=== PATIENT | female | born 1940 | race Caucasian/White ===

== ENCOUNTER 2018-05-01 20:53 | Emergency (ER) | payer OTHER, MEDICAID ==
[~2018-05-01] VITALS: Ht 167.6 cm; Wt 45.4 kg
[~2018-05-01 20:53] MED LIST: ASPI-484 PO; ATOR20TA PO; CLOP75TA52 PO; LEVO75TA6 PO; LISI-414 PO; LORA1TAB PO; METO25TA2 PO
[2018-05-01 21:33] LABS: APPEARANCE,URINE SLIGHTLY HAZY (CLEAR); BILIRUBIN,URINE NEGATIVE (NEGATIVE); UA COLOR YELLOW (YELLOW); UROBILINOGEN,URINE NORMAL (NEGATIVE)
--- NOTE | 2018-05-01 21:34 | ER.PDOC ---
General Chief Complaint: Female Urogenital Problems Stated Complaint: FEMALE Time seen by MD: 21:20 Source: patient, family Exam Limitations: no limitations History of Present Illness Initial Comments Pt states that for a while she has been urinating a lot, having some tooth pain on right lower mandibular area. She has also lost weight Severity/Quality: moderate Allergies: Coded Allergies: Penicillins (Verified Allergy, Unknown, Hives, 03/02/16) Home Meds Active Scripts Metoprolol Succinate (TOPROL XL) 25 Mg Tab.er.24h, 1 TAB PO DAILY, #30 TAB 3 Refills Prov:ANTONY SANTOS MD 06/14/16 Lisinopril (LISINOPRIL) 5 Mg Tablet, 1 TAB PO DAILY for BLOOD PRESSURE, #30 TAB 3 Refills Prov:ANTONY SANTOS MD 06/14/16 Atorvastatin 20MG (LIPITOR 20MG) 20 Mg Tablet, 20 MG PO DAILY, #30 TAB 3 Refills Prov:ANTONY SANTOS MD 06/14/16 Clopidogrel Bisulfate (PLAVIX) 75 Mg Tablet, 75 MG PO DAILY, #30 TABLET 3 Refills Prov:ANTONY SANTOS MD 06/14/16 Aspirin (ASPIR 81) 81 Mg Tablet.dr, 162 MG PO DAILY, #30 3 Refills Prov:ANTONY SANTOS MD 06/14/16 Reported Medications Lorazepam (LORAZEPAM) 1 Mg Tablet, 1 MG PO PRN PRN for ANXIETY, TABLET 08/25/17 Levothyroxine Sodium (LEVOTHYROXINE SODIUM) 75 Mcg Tablet, 70 MCG PO DAILY, TABLET 06/13/16 Past Medical History Medical History: cardiac problems, heart attack, thyroid disease Surgical History: cardiac cath, hysterectomy, stent LMP (females 10-50): hysterectomy Social History Smoking: cigarettes, greater than 1 pack/day Alcohol Use: none Drug Use: none Review of Systems Constitutional: no symptoms reported EENTM: no symptoms reported, mouth pain, mouth swelling Respiratory: shortness of breath Cardiovascular: no symptoms reported Gastrointestinal: no symptoms reported Genitourinary: see HPI Musculoskeletal: no symptoms reported Skin: no symptoms reported, other (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) Psychiatric/Neurological: no symptoms reported Endocrine: no symptoms reported Hematologic/Lymphatic: no symptoms reported Physical Exam General Appearance: No Apparent Distress, WD/WN EENT: eyes nml inspection, nml ENT inspection, pharynx nml Neck: nml inspection, non-tender Cardiovascular/Respiratory: Regular Rate, Rhythm, No M/R/G, Normal Peripheral Pulses, No JVD, Normal Breath Sounds, No Respiratory Distress Abdomen: Normal Bowel Sounds, Non Tender, Soft, No Organomegaly, No Pulsatile Mass Extremities: Normal Range of Motion, Non-Tender, Normal Inspection, No Pedal Edema, No Calf Tenderness, Normal Capillary Refill Neurologic/Psychiatric: financial planning advisor II-XII NML as Tested, No Motor/Sensory Deficits, Alert, Normal Mood/Affect, Oriented x 3 Skin: Normal Color, Warm/Dry, Other (SCCA nose) Lymphatic: No Adenopathy Results/Orders Results/Orders Laboratory Tests Test 05/01/18 21:26 05/01/18 21:32 Urine Collection Type CCMS Urine Color YELLOW (YELLOW) Urine Appearance SLIGHTLY HAZY (CLEAR) Urine Bilirubin NEGATIVE MG/DL (NEGATIVE) Urine Ketones 50 mg/dL (NEGATIVE) Urine Specific [place] 1.020 (1.005-1.035) Urine pH 6 (5.0-6.0) Urine Protein NEGATIVE (NEGATIVE) Urine Urobilinogen NORMAL (NEGATIVE) Urine Nitrate NEGATIVE (NEGATIVE) Urine Leukocyte Esterase 500/uL 2+ (NEGATIVE) Urine Blood NEGATIVE (NEGATIVE) Urine RBC NONE SEEN RBC/HPF (NONE Urine WBC 10-25 WBC/HPF (0-2) Urine Squamous Epithelial Cells NONE SEEN #/HPF (FEW) Urine Bacteria RARE (NONE SEEN) Urine Other MUCUS TRACE #/HPF Urine Glucose NORMAL (NEGATIVE) White Blood Count 10.4 10^3/uL (4.5-11.0) Red Blood Count 4.22 10^6/uL (4.00-5.20) Hemoglobin 13.1 g/dL (12.0-15.0) Hematocrit 38.9 % (36.0-46.0) Mean Corpuscular Volume 92.2 fL (78-100) Mean Corpuscular Hemoglobin 31.0 pg (26-34) Mean Corpuscular Hemoglobin Concent 33.7 g/dL (33-37) Red Cell Distribution Width 13.6 % (11.5-14.5) Platelet Count 300 10^3/uL (150-400) Mean Platelet Volume 9.3 fL (7.8-11.0) Neutrophils (%) (Auto) 46.2 % (41.0-85.0) Lymphocytes (%) (Auto) 37.1 % (24.0-44.0) Monocytes (%) (Auto) 12.3 % (5.0-12.0) Neutrophils # (Auto) 4.8 10^3/uL (1.8-7.7) Lymphocytes # (Auto) 3.9 10^3/uL (1.0-4.8) Monocytes # (Auto) 1.3 10^3/uL (0.3-0.8) Absolute Immature Granulocyte (auto 0.02 10^3 u/L (0-2) Eosinophils % 3.4 % (0.0-5.0) Basophils % 0.8 % (0.0-0.2) Basophils # 0.1 10^3/uL (0.0-0.1) Eosinophil Count 0.4 10^3/uL (0.0-0.2) Sodium Level 128 mmol/L (132-145) Potassium Level 4.0 mmol/L (3.6-5.2) Chloride Level 96.0 mmol/L (96-109) Carbon Dioxide Level 27.4 mmol/L (20.0-32) Anion Gap 8.6 Blood Urea Nitrogen 12 mg/dL (7-18) Creatinine 0.95 mg/dL (0.59-1.40) Estimated GFR () 69.4 (>/=60) BUN/Creatinine Ratio 12.0 Glucose Level 113 mg/dL (70-110) Calcium Level 9.0 mg/dL (8.4-10.5) Total Bilirubin 0.6 mg/dL (0.2-1.0) Aspartate Amino Transf (AST/SGOT) 46 U/L (0-35) Alanine Aminotransferase (ALT/SGPT) 38 U/L (12-78) Alkaline Phosphatase 108 U/L (50-136) Total Protein 7.3 g/dL (6.4-8.2) Albumin 3.8 g/dL (3.4-5.0) Globulin 3.5 Percent Immature Gran (Cell Imm) 0.20 % (0.00-0.50) Departure Time of Disposition: 22:03 Disposition: 01 HOME, SELF-CARE Impression: Primary Impression: UTI (urinary tract infection) Additional Impression: Dental abscess Condition: Stable Patient Instructions: Dental Abscess, Dental Caries, Urinary Tract Infection Referrals: RAINE SINGLETON [facility]IC[facility] (PCP) PRIMARY CARE PROVIDER Duration or Time Spent with Pa: 20 Problem Qualifiers SCOTTY RAMOS MD May 01, 2018 21:34
[2018-05-01 21:38] LABS: BASOPHIL # 0.1 10^3/uL (0.0-0.1); BASOPHIL % 0.8 % (0.0-0.2); EOSINOPHIL # 0.4 10^3/uL (0.0-0.2); EOSINOPHIL % 3.4 % (0.0-5.0); HEMOGLOBIN 13.1 g/dL (12.0-15.0); LYMPHOCYTES # 3.9 10^3/uL (1.0-4.8); LYMPHOCYTES % 37.1 % (24.0-44.0); MEAN CELL HGB CONCENTRATION 33.7 g/dL (33-37); MEAN CORP VOLUME 92.2 fL (78-100); MEAN PLATELET VOLUME 9.3 fL (7.8-11.0); MONOCYTES # 1.3 10^3/uL (0.3-0.8); MONOCYTES % 12.3 % (5.0-12.0); NEUTROPHIL # 4.8 10^3/uL (1.8-7.7); NEUTROPHILS % 46.2 % (41.0-85.0); RED CELL DISTRIBUTION WIDTH 13.6 % (11.5-14.5); WHITE BLOOD CELL 10.4 10^3/uL (4.5-11.0)
[2018-05-01 21:55] LABS: CARBON DIOXIDE 27.4 mmol/L (20.0-32)
[2018-05-01] MEDS ORDERED: AUGMENTIN 500-125 TABLET PO ONE (22:03)
[2018-05-01] MEDS ORDERED: AUGMENTIN 500-125 TABLET PO STA (22:04)
[2018-05-01 22:10] VITALS: BP 128/84
== END 2018-05-01 22:10 | disposition home or self-care (01) ==
LOC: ER 20:53
DX: N39.0 Urinary tract infection, site not specified (principal); K04.7 Periapical abscess without sinus; E07.9 Disorder of thyroid, unspecified; I25.2 Old myocardial infarction; Z79.82 Long term (current) use of aspirin; Z88.0 Allergy status to penicillin; Z90.710 Acquired absence of both cervix and uterus; Z79.899 Other long term (current) drug therapy
CPT/HCPCS: 36415; 80053; 81000; 85025; 87086; 99284

== ENCOUNTER → 2018-06-01 | Outpatient (CLI) | payer OTHER, MEDICAID ==
[2018-06-01 12:22] LABS: BASOPHIL # 0.1 10^3/uL (0.0-0.1); BASOPHIL % 0.7 % (0.0-0.2); EOSINOPHIL # 0.1 10^3/uL (0.0-0.2); EOSINOPHIL % 1.3 % (0.0-5.0); HEMOGLOBIN 15.1 g/dL (12.0-15.0); LYMPHOCYTES # 2.5 10^3/uL (1.0-4.8); LYMPHOCYTES % 32.9 % (24.0-44.0); MEAN CELL HGB 31.4 pg (26-34); MEAN CELL HGB CONCENTRATION 34.4 g/dL (33-37); MEAN CORP VOLUME 91.3 fL (78-100); MEAN PLATELET VOLUME 8.9 fL (7.8-11.0); MONOCYTES # 0.8 10^3/uL (0.3-0.8); MONOCYTES % 10.3 % (5.0-12.0); NEUTROPHIL # 4.1 10^3/uL (1.8-7.7); NEUTROPHILS % 54.7 % (41.0-85.0); RED CELL DISTRIBUTION WIDTH 13.9 % (11.5-14.5); WHITE BLOOD CELL 7.6 10^3/uL (4.5-11.0)
--- NOTE | 2018-06-01 12:36 | DIREP ---
PROCEDURE:CHEST 2 VIEWS COMPARISON:[facility], CR, XRAY CHEST 2 VWS, 08/25/2017, 02:17 PM. INDICATIONS:J44.9 COPD FINDINGS: LUNGS/PLEURA:No significant pulmonary parenchymal abnormalities. No effusions. VASCULATURE:Normal. Unremarkable pulmonary vasculature. CARDIAC:Normal. No cardiac silhouette abnormality or cardiomegaly. MEDIASTINUM:Normal. No visible mass or adenopathy. BONES:No acute pathology. Mild levoscoliosis of the lower thoracic spine. OTHER:Negative. CONCLUSION:No acute cardiac or pulmonary disease, no change from the prior exam. Dictated by: Dago Segura M.D. on 06/01/2018 at 12:33 PM
[2018-06-01 12:49] LABS: CARBON DIOXIDE 28.1 mmol/L (20.0-32)
[2018-06-01 12:50] LABS: CALCIUM 9.3 mg/dL (8.4-10.5)
== END | disposition home or self-care (01) ==
LOC: RAD 11:48
PROVIDERS: ATTEND Nurse Practitioner Family
DX: J44.9 Chronic obstructive pulmonary disease, unspecified (principal); M41.84 Other forms of scoliosis, thoracic region; E03.9 Hypothyroidism, unspecified; I25.10 Atherosclerotic heart disease of native coronary artery without angina pectoris; Z88.0 Allergy status to penicillin; Z87.891 Personal history of nicotine dependence; Z90.49 Acquired absence of other specified parts of digestive tract; Z90.710 Acquired absence of both cervix and uterus
CPT/HCPCS: 36415; 71046; 80053; 84439; 84443; 85025

== ENCOUNTER → 2018-07-17 | Outpatient (CLI) | payer OTHER, MEDICAID ==
--- NOTE | 2018-07-17 09:31 | DIREP ---
PROCEDURE:CHEST 2 VIEWS COMPARISON:[facility], CR, XRAY CHEST 2 VWS, 06/01/2018, 11:51 AM. INDICATIONS:R05 COUGH FINDINGS: LUNGS/PLEURA:There is hyperinflation of the lung fernandez consistent with COPD. No infiltrate or pleural effusion is seen. VASCULATURE:Normal. Unremarkable pulmonary vasculature. CARDIAC:Normal. No cardiac silhouette abnormality or cardiomegaly. MEDIASTINUM:Normal. No visible mass or adenopathy. BONES:Normal. No fracture or visible bony lesion. OTHER:Negative. CONCLUSION:There are findings consistent with chronic obstructive pulmonary disease without acute changes. Dictated by: Dominic Spears M.D. on 07/17/2018 at 09:25 AM
== END | disposition home or self-care (01) ==
LOC: RAD 08:48
PROVIDERS: ATTEND Nurse Practitioner Family
DX: R05 Cough (principal)
CPT/HCPCS: 71046

== ENCOUNTER 2018-07-22 15:35 | Emergency (ER) | payer MEDICAID, OTHER ==
[~2018-07-22] VITALS: Ht 167.6 cm; Wt 47.2 kg
[2018-07-22 15:53] VITALS: BP 161/71
--- NOTE | 2018-07-22 16:01 | NUR ---
ARRIVAL PATIENT ARRIVED TO ED5 AMBULATORY WITH FAMILY, FAMILY BROUGHT PATIENT TO THE ED FOR BLACK FEET AND WEAKNESS TODAY, PATIENT CALLED FAMILY ASKING THEM TO COME OVER, ON THEIR ARRIVAL SHE WAS WEAK AND HER FEET WERE BLACK. BROUGHT THE PATIENT TO THE ED FOR FURTHER EVAL.
[2018-07-22] MEDS ORDERED: DUONEB 0.5 MG-3 MG/3 ML SOLN IH STA (16:02)
[2018-07-22] MEDS ORDERED: DUONEB 0.5 MG-3 MG/3 ML SOLN IH ONE (16:07)
--- NOTE | 2018-07-22 16:12 | PCM.EKG ---
[facility] Test Date: 2018-07-22 Test Time: 16:17:45 Pat Name: NADEGE ALFARO Department: Room: Gender: F Sports Medicine Physician: PATTY : [id number] Requested By: JALIL HOLT Order Number: [id number] Reading MD: Godwin Carranza Measurements Intervals [place] Rate: 60 P: 81 FL: 120 QRS: 84 QRSD: 84 T: 81 QT: 440 QTc: 440 Interpretive Statements Normal sinus rhythm Normal ECG Compared to ECG 08/25/2017 18:26:40 No significant changes Electronically Signed On 07-22-2018 19:42:04 CDT by Godwin Carranza Please click the below link to view image of tracing.
[2018-07-22 16:13] LABS: BASOPHIL # 0.1 10^3/uL (0.0-0.1); BASOPHIL % 0.6 % (0.0-0.2); EOSINOPHIL # 0.3 10^3/uL (0.0-0.2); EOSINOPHIL % 2.7 % (0.0-5.0); HEMOGLOBIN 15.2 g/dL (12.0-15.0); LYMPHOCYTES # 2.9 10^3/uL (1.0-4.8); LYMPHOCYTES % 30.5 % (24.0-44.0); MEAN CELL HGB 31.5 pg (26-34); MEAN CELL HGB CONCENTRATION 34.5 g/dL (33-37); MEAN CORP VOLUME 91.3 fL (78-100); MEAN PLATELET VOLUME 9.5 fL (7.8-11.0); MONOCYTES % 10.6 % (5.0-12.0); NEUTROPHIL # 5.2 10^3/uL (1.8-7.7); NEUTROPHILS % 55.4 % (41.0-85.0); WHITE BLOOD CELL 9.3 10^3/uL (4.5-11.0)
[2018-07-22 16:14] LABS: BILIRUBIN,URINE NEGATIVE (NEGATIVE); UROBILINOGEN,URINE NORMAL (NEGATIVE)
[2018-07-22 16:28] LABS: APPEARANCE,URINE SLIGHTLY HAZY (CLEAR); UA COLOR YELLOW (YELLOW)
--- NOTE | 2018-07-22 16:32 | DIREP ---
PROCEDURE:CHEST 2 VIEWS COMPARISON:[facility], CR, XRAY CHEST 2 VWS, 07/17/2018, 08:46 AM. INDICATIONS:cough FINDINGS: LUNGS/PLEURA:There is pulmonary hyperinflation consistent with underlying COPD. No focal consolidation. No effusions. VASCULATURE:Normal. Unremarkable pulmonary vasculature. CARDIAC:Normal. No cardiac silhouette abnormality or cardiomegaly. MEDIASTINUM:Atherosclerotic aorta with no visible aneurysm. BONES:Mild scoliosis with mild degenerative disc disease and spondylosis. OTHER:Negative. CONCLUSION:COPD. No acute cardiopulmonary disease. No change. Dictated by: Gustavo Rushing M.D. on 07/22/2018 at 04:29 PM
[2018-07-22 16:40] LABS: ALANINE AMINOTRANSFERASE(ML) 28 U/L (12-78); ALKALINE PHOSPHATASE 103 U/L (50-136); ASPARTATE AMINO TRANSFERASE 21 U/L (0-35); CALCIUM 9.2 mg/dL (8.4-10.5); CARBON DIOXIDE 27.9 mmol/L (20.0-32); GLUCOSE 112 mg/dL (70-110)
--- NOTE | 2018-07-22 17:06 | ER.PDOC ---
General Chief Complaint: General Complaint Stated Complaint: DIFFICULTIY MOVEMENT, TRAVEL OUT OF US: No Time seen by MD: 16:00 Source: patient Exam Limitations: no limitations History of Present Illness Timing/Duration: 1 week Severity: mild Modifying Factors: improves with rest Associated Symptoms: cough, loss of appetite, malaise, weakness Allergies: Coded Allergies: Penicillins (Verified Allergy, Unknown, Hives, 03/02/16) Home Meds Active Scripts Aspirin (ASPIR 81) 81 Mg Tablet.dr, 162 MG PO DAILY, #30 3 Refills Prov:ANTONY SANTOS MD 06/14/16 Reported Medications Lorazepam (LORAZEPAM) 1 Mg Tablet, 1 MG PO PRN PRN for ANXIETY, TABLET 08/25/17 Levothyroxine Sodium (LEVOTHYROXINE SODIUM) 75 Mcg Tablet, 70 MCG PO DAILY, TABLET 06/13/16 Discontinued Scripts Metoprolol Succinate (TOPROL XL) 25 Mg Tab.er.24h, 1 TAB PO DAILY, #30 TAB 3 Refills Prov:ANTONY SANTOS MD 06/14/16 Lisinopril (LISINOPRIL) 5 Mg Tablet, 1 TAB PO DAILY for BLOOD PRESSURE, #30 TAB 3 Refills Prov:ANTONY SANTOS MD 06/14/16 Atorvastatin 20MG (LIPITOR 20MG) 20 Mg Tablet, 20 MG PO DAILY, #30 TAB 3 Refills Prov:ANTONY SANTOS MD 06/14/16 Clopidogrel Bisulfate (PLAVIX) 75 Mg Tablet, 75 MG PO DAILY, #30 TABLET 3 Refills Prov:ANTONY SANTOS MD 06/14/16 Past Medical History Medical History: COPD, thyroid disease, other Surgical History: hysterectomy, other LMP (females 10-50): postmenopause Family History Significant Family History: no pertinent family hx Social History Smoking: cigarettes Alcohol Use: none Drug Use: none Reviewed Nursing Reviewed: Vital Signs, Abn. Noted Review of Systems All Other Systems: Reviewed and Negative Physical Exam General Appearance: Cachetic, Thin EENT: eyes nml inspection Neck: Non-Tender Respiratory: rhonchi CVS: reg rate & rhythm Gastrointestinal: Normal Bowel Sounds Back: Normal Inspection Extremities: Normal Range of Motion Neurologic/Psychiatric: marble setter helper II-XII NML as Tested Skin: Normal Color Results/Orders Results/Orders Laboratory Tests Test 07/22/18 16:09 White Blood Count 9.3 10^3/uL (4.5-11.0) Red Blood Count 4.83 10^6/uL (4.00-5.20) Hemoglobin 15.2 g/dL (12.0-15.0) Hematocrit 44.1 % (36.0-46.0) Mean Corpuscular Volume 91.3 fL (78-100) Mean Corpuscular Hemoglobin 31.5 pg (26-34) Mean Corpuscular Hemoglobin Concent 34.5 g/dL (33-37) Red Cell Distribution Width 13.0 % (11.5-14.5) Platelet Count 264 10^3/uL (150-400) Mean Platelet Volume 9.5 fL (7.8-11.0) Neutrophils (%) (Auto) 55.4 % (41.0-85.0) Lymphocytes (%) (Auto) 30.5 % (24.0-44.0) Monocytes (%) (Auto) 10.6 % (5.0-12.0) Neutrophils # (Auto) 5.2 10^3/uL (1.8-7.7) Lymphocytes # (Auto) 2.9 10^3/uL (1.0-4.8) Monocytes # (Auto) 1.0 10^3/uL (0.3-0.8) Absolute Immature Granulocyte (auto 0.02 10^3 u/L (0-2) Eosinophils % 2.7 % (0.0-5.0) Basophils % 0.6 % (0.0-0.2) Basophils # 0.1 10^3/uL (0.0-0.1) Eosinophil Count 0.3 10^3/uL (0.0-0.2) Prothrombin Time 9.9 SEC (9.8-11.9) Prothrombin Time INR (Non-Therap) 1.0 Activated Partial Thromboplast Time 24.9 SEC (24.67-30.72) D-Dimer 0.64 mg/L (0.19-0.49) Urine Collection Type VOID Urine Color YELLOW (YELLOW) Urine Appearance SLIGHTLY HAZY (CLEAR) Urine Bilirubin NEGATIVE MG/DL (NEGATIVE) Urine Ketones NEGATIVE (NEGATIVE) Urine Specific [place] 1.020 (1.005-1.035) Urine pH 5 (5.0-6.0) Urine Protein NEGATIVE (NEGATIVE) Urine Urobilinogen NORMAL (NEGATIVE) Urine Nitrate NEGATIVE (NEGATIVE) Urine Leukocyte Esterase 100/ul 1+ (NEGATIVE) Urine Blood NEGATIVE (NEGATIVE) Urine RBC 0-2 RBC/HPF (NONE SEEN) Urine WBC 5-10 WBC/HPF (0-2) Urine Squamous Epithelial Cells FEW #/HPF (FEW) Urine Bacteria RARE (NONE SEEN) Urine Other 2+ MUCUS #/HPF Urine Glucose NORMAL (NEGATIVE) Sodium Level 138 mmol/L (132-145) Potassium Level 4.5 mmol/L (3.6-5.2) Chloride Level 102.0 mmol/L (96-109) Carbon Dioxide Level 27.9 mmol/L (20.0-32) Anion Gap 12.6 Blood Urea Nitrogen 9 mg/dL (7-18) Creatinine 0.81 mg/dL (0.59-1.40) Estimated GFR () 83.4 (>/=60) BUN/Creatinine Ratio 11.0 Glucose Level 112 mg/dL (70-110) Calcium Level 9.2 mg/dL (8.4-10.5) Total Bilirubin 0.4 mg/dL (0.2-1.0) Aspartate Amino Transf (AST/SGOT) 21 U/L (0-35) Alanine Aminotransferase (ALT/SGPT) 28 U/L (12-78) Alkaline Phosphatase 103 U/L (50-136) Total Creatine Kinase 39 U/L (26-192) Creatine Kinase MB 0.5 ng/mL (0.5-3.6) Troponin I < 0.02 ng/mL (0.00-0.05) Pro-B-Type Natriuretic Peptide 280 pg/mL (0-450) Total Protein 7.3 g/dL (6.4-8.2) Albumin 3.3 g/dL (3.4-5.0) Globulin 4.0 Percent Immature Gran (Cell Imm) 0.20 % (0.00-0.50) Helicobacter pylori Screen NEGATIVE (NEGATIVE) Administered Medications Medications (Trade) Dose Ordered Sig/Michelle Route PRN Reason Start Time Stop Time Status Last Admin Dose Admin Albuterol/ Ipratropium (Duoneb 0.5 Mg-3 Mg/3 ml Soln) 3 ml STAT STAT IH 07/22/18 16:02 07/22/18 16:03 DC 07/22/18 16:02 EKG/XRAY/CT/US EKG: NSR, no ST T wave changes Course Vitals & review Data Vital Sign - Last 24 Hours 07/22/18 07/22/18 07/22/18 07/22/18 15:50 15:51 15:53 16:15 Temp 97.8 97.8 97.8 97.8 97.8 97.8 Pulse 67 67 67 59 Resp 18 18 18 18 B/P (MAP) 161/71 (101) Pulse Ox 95 95 97 O2 Delivery Room Air Room Air 07/22/18 16:16 Pulse 60 Resp 18 Pulse Ox 100 Laboratory Tests Test 07/22/18 16:09 White Blood Count 9.3 10^3/uL Red Blood Count 4.83 10^6/uL Hemoglobin 15.2 g/dL Hematocrit 44.1 % Mean Corpuscular Volume 91.3 fL Mean Corpuscular Hemoglobin 31.5 pg Mean Corpuscular Hemoglobin Concent 34.5 g/dL Red Cell Distribution Width 13.0 % Platelet Count 264 10^3/uL Mean Platelet Volume 9.5 fL Neutrophils (%) (Auto) 55.4 % Lymphocytes (%) (Auto) 30.5 % Monocytes (%) (Auto) 10.6 % Neutrophils # (Auto) 5.2 10^3/uL Lymphocytes # (Auto) 2.9 10^3/uL Monocytes # (Auto) 1.0 10^3/uL Absolute Immature Granulocyte (auto 0.02 10^3 u/L Eosinophils % 2.7 % Basophils % 0.6 % Basophils # 0.1 10^3/uL Eosinophil Count 0.3 10^3/uL Prothrombin Time 9.9 SEC Prothrombin Time INR (Non-Therap) 1.0 Activated Partial Thromboplast Time 24.9 SEC D-Dimer 0.64 mg/L Urine Collection Type VOID Urine Color YELLOW Urine Appearance SLIGHTLY HAZY Urine Bilirubin NEGATIVE MG/DL Urine Ketones NEGATIVE Urine Specific [place] 1.020 Urine pH 5 Urine Protein NEGATIVE Urine Urobilinogen NORMAL Urine Nitrate NEGATIVE Urine Leukocyte Esterase 100/ul 1+ Urine Blood NEGATIVE Urine RBC 0-2 RBC/HPF Urine WBC 5-10 WBC/HPF Urine Squamous Epithelial Cells FEW #/HPF Urine Bacteria RARE Urine Other 2+ MUCUS #/HPF Urine Glucose NORMAL Sodium Level 138 mmol/L Potassium Level 4.5 mmol/L Chloride Level 102.0 mmol/L Carbon Dioxide Level 27.9 mmol/L Anion Gap 12.6 Blood Urea Nitrogen 9 mg/dL Creatinine 0.81 mg/dL Estimated GFR () 83.4 BUN/Creatinine Ratio 11.0 Glucose Level 112 mg/dL Calcium Level 9.2 mg/dL Total Bilirubin 0.4 mg/dL Aspartate Amino Transf (AST/SGOT) 21 U/L Alanine Aminotransferase (ALT/SGPT) 28 U/L Alkaline Phosphatase 103 U/L Total Creatine Kinase 39 U/L Creatine Kinase MB 0.5 ng/mL Troponin I < 0.02 ng/mL Pro-B-Type Natriuretic Peptide 280 pg/mL Total Protein 7.3 g/dL Albumin 3.3 g/dL Globulin 4.0 Percent Immature Gran (Cell Imm) 0.20 % Helicobacter pylori Screen NEGATIVE Departure Time of Disposition: 17:44 Disposition: 01 HOME, SELF-CARE Impression: Primary Impression: UTI (urinary tract infection) Condition: Stable Referrals: RAINE SINGLETON LEGAL SERVICES MANAGER (PCP) PRIMARY CARE PROVIDER Duration or Time Spent with Pa: 2 hrs JALIL HOLT MD Jul 22, 2018 17:06
[2018-07-22 17:15] VITALS: BP 185/74
[2018-07-22 17:20] VITALS: BP 161/71
== END 2018-07-22 17:15 | disposition home or self-care (01) ==
LOC: ER 15:35
DX: N39.0 Urinary tract infection, site not specified (principal); J44.9 Chronic obstructive pulmonary disease, unspecified; R79.1 Abnormal coagulation profile; E07.9 Disorder of thyroid, unspecified; F17.210 Nicotine dependence, cigarettes, uncomplicated; Z90.710 Acquired absence of both cervix and uterus; Z79.82 Long term (current) use of aspirin; Z79.899 Other long term (current) drug therapy; Z88.0 Allergy status to penicillin
CPT/HCPCS: 71046; 80053; 81000; 82550; 82553; 83880; 84484; 85025; 85379; 85610; 85730; 86677; 87086; 93005; 94640; 99285; J7620